=== PATIENT | female | born 1980 | race Caucasian/White ===

== ENCOUNTER 2016-12-18 12:30 | Emergency (ER) | payer MEDICAID ==
[~2016-12-18] VITALS: Ht 157.5 cm; Wt 72.6 kg
[~2016-12-18 12:30] MED LIST: LISI-363 PO; LORTA5 PO
[2016-12-18 12:51] VITALS: BP 111/85; PULSE 96; RESP 16; TEMP 98.1; O2SAT 97
--- NOTE | 2016-12-18 14:29 | PD ---
HPI Chief Complaint: Dizziness Time Seen by Provider: 14:29 Travel History International Travel<30 days: No Contact w/Intl Traveler<30days: No Traveled to known affect area: No History of Present Illness HPI 36-year-old female with history of hypertension presents to the ED for evaluation of 4 week history of right great toe pain and right sided back pain. Onset after she became dizzy and fell approximately 4 weeks ago. She rates the toe pain 8/10, worsened by ambulation. She states that the back pain is on the right lower lumbar area, occasionally radiates with tingling down the back of the right leg to the knee. She denies numbness, weakness, limitations to range of motion, saddle anesthesia, incontinence. She has treated with ice at home with no improvement of symptoms. She states that she has seen her primary care provider who wrote for outpatient x-rays of the lumbar spine and toe but she sought treatment today because her toe pain is so great. PFSH Past Medical History Anxiety: Yes Cancer: No Cardiovascular Problems: Yes (RAPID HR, HTN) Diminished Hearing: No Endocrine: No Gastrointestinal Disorders: Yes (GALLSTONES) Headaches: Yes Hypertension: Yes Immune Disorder: No Medical other: Yes (HERNIA, MOTHER H/O MULTIPLE STROKES) Neurologic: Yes (SCIATICA NERVE DAMAGE) Reproductive: Yes (ENDROMETRIOSIS) Respiratory: No Immunizations Current: Yes Tetanus Vaccination: > 5 Years Influenza Vaccination: No ?: Not LMP: TUBAL : 4 Para: 2 Miscarriage: 1 : 2 Tubal Ligation: Yes Past Surgical History Abdominal Surgery: Yes (GALLBLADDER) Cardiac Surgery: No Section: Yes (X 2) Cholecystectomy: Yes Genitourinary Surgery: No Gynecologic Surgery: Yes () Thoracic Surgery: No Other Surgery: Yes Social History Alcohol Use: Yes (WINE FEW TIMES PER WEEK) Tobacco Use: No Substance Use: No Allergies-Medications (Allergen,Severity, Reaction): Coded Allergies: No Known Allergies (Verified , 12/18/16) Reported Meds & Prescriptions Reported Meds & Active Scripts Active Flexeril (Cyclobenzaprine HCl) 10 Mg Tab 10 Mg PO TID Ibuprofen 800 Mg Tab 800 Mg PO Q8H Reported Klonopin (Clonazepam) 0.5 Mg Tab 0.5 Mg PO DIRECTED PRN Lortab (Hydrocodone-Acetaminophen) 10-325 Mg Tab 1 Tab PO Q4H PRN Lisinopril 20 Mg Tab 20 Mg PO DAILY Review of Systems Except as stated in HPI: all other systems reviewed are Neg Physical Exam Narrative GENERAL: Well-nourished, well-developed white female in no acute distress. SKIN: Warm and dry. HEAD: Normocephalic. EYES: No scleral icterus. No injection or drainage. NECK: Supple, trachea midline. No JVD or lymphadenopathy. CARDIOVASCULAR: Regular rate and rhythm without murmurs, gallops, or rubs. RESPIRATORY: Breath sounds equal bilaterally. No accessory muscle use. GASTROINTESTINAL: Abdomen soft, non-tender, nondistended. MUSCULOSKELETAL: No cyanosis, or edema. Focused right lower extremity exam: 2+ DP pulse. No tenderness to palpation of the anterior lateral hip. 5/5 strength with dorsiflexion, plantar flexion, knee flexion and hip flexion. Tender to palpation of the MP joint of the great toe. Mild deformity, suspicious for bunion. Patient is able to flex and extend the toes. Cap refill less than 2 seconds. Sensation intact to light touch distally. NEUROLOGICAL: Awake and alert. Cranial nerves II through XII intact. Motor and sensory grossly within normal limits. Five out of 5 muscle strength in all muscle groups. Normal speech. BACK: Nontender without obvious deformity. No CVA tenderness. No midline tenderness to palpation. Mild TTP of the right-sided lumbar musculature to the sciatic notch. Data Data Last Documented VS Vital Signs Date Time Temp Pulse Resp B/P Pulse Ox O2 Delivery O2 Flow Rate FiO2 12/18/16 16:28 85 14 115/92 100 12/18/16 12:51 98.1 Orders Toe (Min 2vws) (12/18/16 14:54) Ice/Cold Pack (12/18/16 14:54) Tramadol (Ultram) (12/18/16 15:45) MDM Medical Decision Making Medical Screen Exam Complete: Yes Emergency Medical Condition: Yes Differential Diagnosis Musculoskeletal pain versus fracture versus gout versus low back pain versus sciatica versus other Narrative Course 36-year-old female with history of hypertension presents to the ED for evaluation of 4 week history of right great toe pain and right sided back pain. Onset after she became dizzy and fell approximately 4 weeks ago. She rates the toe pain 8/10, worsened by ambulation. She states that the back pain is on the right lower lumbar area, occasionally radiates with tingling down the back of the right leg to the knee. She has treated with ice at home with no improvement of symptoms. She states that she has seen her primary care provider who wrote for outpatient x-rays of the lumbar spine and toe but she sought treatment today because her toe pain is so great. Vital reviewed. Physical exam reveals no tenderness to palpation of the anterior lateral hip. 5 /5 strength with dorsiflexion, plantar flexion, knee flexion and hip flexion. Tender to palpation of the MP joint of the great toe. No warmth or erythema. Mild deformity, suspicious for bunion. Patient is able to flex and extend the toes. No focal neural deficits. Mild tenderness to palpation of the right- sided lumbar musculature extending into the sciatic notch. Ice pack was applied. Patient was administered a single dose of tramadol. X-ray reveals no bony injury to the toe. This is low back pain and musculoskeletal pain of the toe. Patient was prescribed a short course of anti-inflammatory medications and muscle relaxants. She is instructed take the medications prescribed, follow up with her primary provider this week. She did understanding of the instructions. She is stable and discharged home. 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 Rest, ice, elevate the extremity. Apply ice no longer than 10-15 minutes per hour a few times a day. 800 milligrams ibuprofen 3 times a day as prescribed. Flexeril up to 30 times a day as needed for muscle spasm. Do not drive with taking Flexeril. Return to normal, gentle activity as tolerated. No running, jumping activities for the next few weeks. Follow up with the freelance court reporter and your primary care provider. Return to the ED for any urgent or emergent medical condition. Med/Other Pt SpecificInfo: Prescription(s) given Scripts Cyclobenzaprine (Flexeril)10 Mg Tab10 Mg PO TID #12 TAB Ref 0 Prov:Maureen Barriga MD 12/18/16 Ibuprofen 800 Mg [id number] Mg PO Q8H #14 TAB Ref 0 Prov:Maureen Barriga MD 12/18/16 Disposition: 01 DISCHARGE HOME Condition: Stable Xiomara Hemphill Dec 18, 2016 14:29
[2016-12-18] MEDS ORDERED: LISI-515 PO (14:30)
[2016-12-18] MEDS ORDERED: HYDR-3535 PO (14:30)
[2016-12-18] MEDS ORDERED: CLON.5 PO (14:30)
--- NOTE | 2016-12-18 15:33 | RADHPO ---
EXAM DATE/TIME: 12/18/2016 14:56 [facility] COMPARISON: No previous studies available for comparison. INDICATIONS : Right great toe pain after fall 4 weeks ago MEDICAL HISTORY : None. SURGICAL HISTORY : None. ENCOUNTER: Initial ACUITY: 1 month PAIN SCORE: 10/10 LOCATION: Right medial great toe FINDINGS: Examination of the first digit of the right foot demonstrates no evidence of fracture or dislocation. No radiopaque foreign bodies are seen. The soft tissues are intact. CONCLUSION: Negative for fracture or dislocation. Follow up in 7-10 days is suggested if symptoms persist. Jamaal Goodwin MD FACR on December 18, 2016 at 15:31 Board Certified Radiologist. This report was verified electronically.
[2016-12-18] MEDS ORDERED: traMADol HCL 50 MG TAB PO ONE (15:45)
[2016-12-18] MEDS ORDERED: IBUP800T23 PO (16:11)
[2016-12-18] MEDS ORDERED: CYCL1TAB29 PO (16:11)
[2016-12-18 16:28] VITALS: BP 115/92
== END 2016-12-18 16:29 | disposition home or self-care (01) ==
LOC: PHED 12:30 → PHEFT 16:29
DX: M79.674 Pain in right toe(s) (principal); M54.41 Lumbago with sciatica, right side; I10 Essential (primary) hypertension; W19.XXXA Unspecified fall, initial encounter
CPT/HCPCS: 73660; 99283

== ENCOUNTER 2017-01-17 19:54 | Emergency (ER) | payer MEDICAID, OTHER ==
[~2017-01-17] VITALS: Ht 157.5 cm; Wt 73.5 kg
[2017-01-17] VITALS (8 sets, daily range): BP systolic 103–122; BP diastolic 67–90; PULSE 88–104; RESP 16; TEMP 98.1; O2SAT 97–100
[~2017-01-17 19:54] MED LIST changes: +CLON.5 PO; +CYCL1TAB29 PO; +HYDR-3535 PO; +IBUP800T23 PO; -LISI-363 PO; +LISI-515 PO; -LORTA5 PO
[2017-01-17] MEDS ORDERED: SODIUM CHLOR 0.9% 1000 ML INJ 1,000 ML IV ONE (20:17)
[2017-01-17] MEDS ORDERED: SODIUM CHLORIDE 0.9% FLUSH 10 ML FLUSH IVF PRN (20:30)
[2017-01-17] MEDS ORDERED: ONDANSETRON HCL 4 MG/2 ML VIAL IVP ONE (20:30)
--- NOTE | 2017-01-17 20:49 | RADHPO ---
EXAM DATE/TIME: 01/17/2017 20:28 [facility] COMPARISON: CHEST SINGLE AP, September 19, 2014, 8:13. INDICATIONS : Palpitations and dizziness. MEDICAL HISTORY : Anxiety SURGICAL HISTORY : Tubal ligation. ENCOUNTER: Initial ACUITY: 1 day PAIN SCORE: 0/10 LOCATION: Bilateral chest FINDINGS: A single view of the chest demonstrates the lungs to be symmetrically aerated without evidence of mas s, infiltrate or effusion. The cardiomediastinal contours are unremarkable. Osseous structures are intact. CONCLUSION: No acute disease. Bala Olguin MD on January 17, 2017 at 20:47 Board Certified Radiologist. This report was verified electronically.
[2017-01-17 21:29] LABS: AUTOMATED NEUTROPHIL # 5.7 TH/MM3 (1.8-7.7); BASOPHIL # 0.3 TH/MM3 (0-0.2); BASOPHIL % 3.2 % (0.0-2.0); EOSINOPHIL # 0.4 TH/MM3 (0-0.4); EOSINOPHIL % 4.9 % (0.0-4.0); HEMATOCRIT 40.2 % (35.0-46.0); HEMO FLAGS DIFF FINAL; LYMPH % 20.1 % (9.0-44.0); LYMPHOCYTE # 1.7 TH/MM3 (1.0-4.8); MEAN CELL VOLUME 90.8 FL (80.0-100.0); MEAN CORPUSCULAR HEMOGLOBIN 30.6 PG (27.0-34.0); MEAN CORPUSCULAR HGB CONC 33.7 % (32.0-36.0); MONO % 6.4 % (0.0-8.0); NEUT % 65.4 % (16.0-70.0); PLATELET COUNT 205 TH/MM3 (150-450); RED BLOOD COUNT 4.43 MIL/MM3 (4.00-5.30); RED CELL DISTRIBUTION WIDTH 12.1 % (11.6-17.2); WHITE BLOOD COUNT 8.7 TH/MM3 (4.0-11.0)
[2017-01-17 21:44] LABS: CHLORIDE 102 MEQ/L (98-107); POTASSIUM 4.1 MEQ/L (3.5-5.1); SODIUM (NA) 139 MEQ/L (136-145)
[2017-01-17 21:48] LABS: ANION GAP 9 MEQ/L (5-15); BICARBONATE 27.7 MEQ/L (21.0-32.0); BLOOD UREA NITROGEN 11 MG/DL (7-18); MAGNESIUM 1.9 MG/DL (1.5-2.5)
[2017-01-17 21:50] LABS: PROTHROMBIN TIME - PATIENT 10.5 SEC (9.8-11.6)
[2017-01-17 21:51] LABS: ALT (GPT) 43 U/L (10-53); AST (GOT) 41 U/L (15-37); GLOMERULAR FILTRATION RATE 77 ML/MIN (>89)
[2017-01-17 21:53] LABS: TOTAL BILIRUBIN ADULT 0.4 MG/DL (0.2-1.0)
[2017-01-17 21:53] LABS: BLOOD, URINE LARGE (NEG); GLUCOSE,URINE NEG (NEG); KETONE, URINE 15 mg/dL (NEG); NITRITE,URINE NEG (NEG); PH, URINE 5.5 (5.0-8.5)
[2017-01-17 21:54] LABS: ALKALINE PHOSPHATASE 66 U/L (45-117)
[2017-01-17 22:00] LABS: BARBITURATES, URINE NEG (NEG); URINE COLOR YELLOW (YELLW/STRAW)
[2017-01-17 22:01] LABS: AMPHETAMINE, URINE NEG (NEG); COCAINE, URINE NEG (NEG); MUCUS URINE MOD /lpf (OCC); SQUAMOUS EPITHELIAL CELL URINE 0-5 /hpf (0-5)
[2017-01-17 22:02] LABS: BACTERIA, URINE FEW /hpf; COMMENT (UR) CULT NOT INDICATED; CULTURE IF INDICATED CULT NOT INDICATED; RBC, URINE 0-3 /hpf (0-3)
--- NOTE | 2017-01-17 23:03 | RADHPO ---
EXAM DATE/TIME: 01/17/2017 22:25 [facility] COMPARISON: CT BRAIN W/O CONTRAST, August 09, 2015, 19:09. INDICATIONS : Syncopal episode. RADIATION DOSE: 56.13 CTDIvol (mGy) MEDICAL HISTORY : Hypertension. SURGICAL HISTORY : Tubal ligation. ENCOUNTER: Initial ACUITY: 1 day PAIN SCALE: 3/10 LOCATION: cranial TECHNIQUE: Multiple contiguous axial images were obtained of the head. Using automated exposure control and adj ustment of the mA and/or kV according to patient size, radiation dose was kept as low as reasonably a chievable to obtain optimal diagnostic quality images. FINDINGS: CEREBRUM: The ventricles are normal for age. No evidence of midline shift, mass lesion, hemorrhage or acute in farction. No extra-axial fluid collections are seen. POSTERIOR FOSSA: The cerebellum and brainstem are intact. The 4th ventricle is midline. The cerebellopontine angle i s unremarkable. EXTRACRANIAL: The visualized portion of the orbits is intact. SKULL: The calvaria is intact. No evidence of skull fracture. CONCLUSION: Normal examination. Bala Olguin MD on January 17, 2017 at 23:00 Board Certified Radiologist. This report was verified electronically.
--- NOTE | 2017-01-18 00:01 | PD ---
HPI Chief Complaint: Syncope/Near-Syncope Time Seen by Provider: 20:17 Travel History International Travel<30 days: No Contact w/Intl Traveler<30days: No Traveled to known affect area: No History of Present Illness HPI 36-year-old female presents to the emergency department by EMS transport after her syncopal episode at work. Patient states that she did not feel well yesterday and then today while at work under enormous stress she started to feel poorly and started to sweat so went to the back office where she sat down thinks she may have had a brief episode of fainting. Patient reports coworker told her that she was pale and sweating so he called 911. Upon EMS arrival patient was hypotensive. Patient reports that she has chronic pain syndrome and anxiety and more recently has been taking as needed Klonopin for her anxiety and Lortab 10 as needed for pain associated with history of endometriosis and sciatica. Patient states she started her period 2 days ago and because is that believes that she is having her endometriosis pain and sciatica. Patient denies any trauma. The sudden onset thunderclap or worst ever headache no visual disturbance no double vision or loss of vision or change in her hearing no sore throat no neck pain no recent febrile illness or respiratory illness no cough congestion or shortness of breath. Patient did have one episode of vomiting however does not report bilious emesis coffee- ground emesis or hematemesis. No abdominal pain denies any flank pain dysuria frequency urgency or hematuria. No lower extremity numbness tingling or weakness but does have her referred sciatica pain on the right. Patient states she took her last dose of Lortab on evening and took a dose of Klonopin a few days ago. Patient reports she does not take these medications on a routine ordered daily basis. Patient states that she had eaten prior to going to work. Patient does not report any issues with hypoglycemia or blood sugar issues. Patient was given 500 ml of normal saline en route by EMS and patient reports feeling better at this time. Blood sugar was reportedly within normal range. Patient reports she has had near syncopal and syncopal episodes in the past. PFSH Past Medical History Narrative Medical Anxiety, rapid heart rate, hypertension, near syncope/syncope, migraines, endometriosis, sciatica; tubal ligation, , cholecystectomy; alcohol use ; nursing notes reviewed Anxiety: Yes Cancer: No Cardiovascular Problems: Yes (RAPID HR, HTN) Diminished Hearing: No Endocrine: No Gastrointestinal Disorders: Yes (GALLSTONES) Headaches: Yes Hypertension: Yes Immune Disorder: No Neurologic: Yes (SCIATICA NERVE DAMAGE) Reproductive: Yes (ENDROMETRIOSIS) Respiratory: No Immunizations Current: Yes Influenza Vaccination: No ?: Not LMP: HX TL 2004 : 4 Para: 2 Miscarriage: 1 : 2 Tubal Ligation: Yes (2004) Past Surgical History Abdominal Surgery: Yes (GALLBLADDER) Cardiac Surgery: No Section: Yes (X 2) Cholecystectomy: Yes Genitourinary Surgery: No Gynecologic Surgery: Yes () Thoracic Surgery: No Other Surgery: Yes Social History Alcohol Use: Yes (WINE 3-4 TIMES PER WEEK) Tobacco Use: No Substance Use: No Allergies-Medications (Allergen,Severity, Reaction): Coded Allergies: No Known Allergies (Verified , 12/18/16) Reported Meds & Prescriptions Reported Meds & Active Scripts Active Flexeril (Cyclobenzaprine HCl) 10 Mg Tab 10 Mg PO TID Ibuprofen 800 Mg Tab 800 Mg PO Q8H Reported Klonopin (Clonazepam) 0.5 Mg Tab 0.5 Mg PO DIRECTED PRN Lortab (Hydrocodone-Acetaminophen) 10-325 Mg Tab 1 Tab PO Q4H PRN Lisinopril 20 Mg Tab 20 Mg PO DAILY Review of Systems Except as stated in HPI: all other systems reviewed are Neg General / Constitutional: No: Fever, Chills Eyes: No: Visual changes HENT: Positive: Lightheadedness, No: Headaches, Neck Pain Cardiovascular: Positive: Diaphoresis, Syncope, No: Palpitations Respiratory: No: Shortness of Breath Gastrointestinal: No: Nausea, Vomiting, Diarrhea, Abdominal Pain Genitourinary: No: Dysuria, Decreased Urinary Output Musculoskeletal: No: Myalgias, Arthralgias Skin: No Rash Neurologic: Positive: Dizziness, Syncope, No: Weakness, Focal Abnormalities, Coordination Problem Psychiatric: Positive: Anxiety Endocrine: No: Heat Intolerance Physical Exam Narrative GENERAL: Well-developed well-nourished female in no acute distress no respiratory distress; gcs 15. SKIN: Warm and dry. HEAD: Atraumatic. Normocephalic. EYES: Pupils equal and round. No scleral icterus. No injection or drainage. ENT: No nasal bleeding or discharge. Mucous membranes pink and moist. NECK: Trachea midline. No JVD. CARDIOVASCULAR: Regular rate and rhythm. RESPIRATORY: No accessory muscle use. Clear to auscultation. Breath sounds equal bilaterally. GASTROINTESTINAL: Abdomen soft, non-tender, nondistended. Hepatic and splenic margins not palpable. MUSCULOSKELETAL: Extremities without clubbing, cyanosis, or edema. No obvious deformities. NEUROLOGICAL: Awake and alert. No obvious cranial nerve deficits. Motor grossly within normal limits. Five out of 5 muscle strength in the arms and legs. No limb ataxia. No pronator drift. Sensory exam grossly intact. Normal speech. PSYCHIATRIC: Appropriate mood and affect; insight and judgment normal. Data Data Last Documented VS Vital Signs Date Time Temp Pulse Resp B/P Pulse Ox O2 Delivery O2 Flow Rate FiO2 01/18/17 01:07 97 16 123/85 100 Room Air 01/17/17 20:08 98.1 Orders Electrocardiogram (01/17/17 20:17) Ed Urine Pregnancytest Poc (01/17/17 20:17) Complete Blood Count With Diff (01/17/17 20:17) Comprehensive Metabolic Panel (01/17/17 20:17) Magnesium (Mg) (01/17/17 20:17) Troponin I (01/17/17 20:17) Act Partial Throm Time (Ptt) (01/17/17 20:17) Prothrombin Time / Inr (Pt) (01/17/17 20:17) Urinalysis - C+S If Indicated (01/17/17 20:17) Chest, Single Ap (01/17/17 20:17) Ct Brain W/O Iv Contrast(Rout) (01/17/17 20:17) Blood Glucose (01/17/17 20:17) Ecg Monitoring (01/17/17 20:17) Iv Access Insert/Monitor (01/17/17 20:17) Oximetry (01/17/17 20:17) Ondansetron Inj (Zofran Inj) (01/17/17 20:30) Sodium Chloride 0.9% Flush (Ns Flush) (01/17/17 20:30) Sodium Chlor 0.9% 1000 Ml Inj (Ns 1000 M (01/17/17 20:17) Drug Screen, Random Urine (01/17/17 20:54) Sodium Chlor 0.9% 1000 Ml Inj (Ns 1000 M (01/18/17 00:15) Labs Laboratory Tests Test 01/17/17 01/17/17 21:00 21:30 White Blood Count 8.7 TH/MM3 Red Blood Count 4.43 MIL/MM3 Hemoglobin 13.6 GM/DL Hematocrit 40.2 % Mean Corpuscular Volume 90.8 FL Mean Corpuscular Hemoglobin 30.6 PG Mean Corpuscular Hemoglobin 33.7 % Concent Red Cell Distribution Width 12.1 % Platelet Count 205 TH/MM3 Mean Platelet Volume 7.6 FL Neutrophils (%) (Auto) 65.4 % Lymphocytes (%) (Auto) 20.1 % Monocytes (%) (Auto) 6.4 % Eosinophils (%) (Auto) 4.9 % Basophils (%) (Auto) 3.2 % Neutrophils # (Auto) 5.7 TH/MM3 Lymphocytes # (Auto) 1.7 TH/MM3 Monocytes # (Auto) 0.6 TH/MM3 Eosinophils # (Auto) 0.4 TH/MM3 Basophils # (Auto) 0.3 TH/MM3 CBC Comment DIFF FINAL Differential Comment Prothrombin Time 10.5 SEC Prothromb Time International 1.0 RATIO Ratio Activated Partial 24.0 SEC Thromboplast Time Sodium Level 139 MEQ/L Potassium Level 4.1 MEQ/L Chloride Level 102 MEQ/L Carbon Dioxide Level 27.7 MEQ/L Anion Gap 9 MEQ/L Blood Urea Nitrogen 11 MG/DL Creatinine 0.83 MG/DL Estimat Glomerular Filtration 77 ML/MIN Rate Random Glucose 88 MG/DL Calcium Level 8.9 MG/DL Magnesium Level 1.9 MG/DL Total Bilirubin 0.4 MG/DL Aspartate Amino Transf 41 U/L (AST/SGOT) Alanine Aminotransferase 43 U/L (ALT/SGPT) Alkaline Phosphatase 66 U/L Troponin I LESS THAN 0.02 NG/ML Total Protein 8.2 GM/DL Albumin 4.0 GM/DL Urine Color YELLOW Urine Turbidity CLEAR Urine pH 5.5 Urine Specific [place] 1.020 Urine Protein NEG mg/dL Urine Glucose (UA) NEG mg/dL Urine Ketones 15 mg/dL Urine Occult Blood LARGE Urine Nitrite NEG Urine Bilirubin NEG Urine Leukocyte Esterase NEG Urine RBC 0-3 /hpf Urine WBC 3-5 /hpf Urine Squamous Epithelial 0-5 /hpf Cells Urine Amorphous Sediment FEW Urine Bacteria FEW /hpf Urine Mucus MOD /lpf Microscopic Urinalysis Comment CULT NOT INDICATED Urine Opiates Screen POS Urine Barbiturates Screen NEG Urine Amphetamines Screen NEG Urine Benzodiazepines Screen POS Urine Cocaine Screen NEG Urine Cannabinoids Screen POS MDM Medical Decision Making Medical Screen Exam Complete: Yes Emergency Medical Condition: Yes Medical Record Reviewed: Yes Interpretation(s) EKG normal sinus rhythm rate [address] elevation injury pattern or ectopy noted Last Impressions Head CT 01/17/172016 Signed Impressions: Service Date/Time: Tuesday, January 17, 2017 22:25 - CONCLUSION: Normal examination. Bala Olguin MD Chest X-Ray 01/17/172016 Signed Impressions: Service Date/Time: Tuesday, January 17, 2017 20:28 - CONCLUSION: No acute disease. Bala Olguin MD CBC & BMP Diagram 01/17/17 21:00 Vital Signs Date Time Temp Pulse Resp B/P Pulse Ox O2 Delivery O2 Flow Rate FiO2 01/17/17 20:26 99 16 117/82 99 Room Air 112/90 01/17/17 20:15 106 16 100 Room Air 01/17/17 20:08 98.1 104 16 122/86 100 01/17/17 20:05 16 100 Room Air Differential Diagnosis Near-syncope, syncope, vasovagal versus arrhythmia versus electrolyte disturbance versus dehydration versus anemia versus ACS versus TIA versus CVA versus versus UTI versus sepsis Narrative Course Patient placed on air sampling and monitoring IV access obtained specimens collected and sent for resulting EKG sinus rhythm no acute ST elevation or injury pattern change noted Imaging studies ordered; no acute findings identified Lab values found to be in within normal range; patient administered IV fluid bolus Patient clinically improved with some mild weakness complaint therefore additional IV fluids administered and had not eaten since this morning therefore given a meal After fluid hydration and oral intake patient reports she is at her baseline is desirous of being discharged home has had previous syncopal episodes appears to have had a probable vasovagal event and appears stable for outpatient management at this time. Diagnosis Primary Impression: Vasovagal syncope Referrals: Primary Care Physician 2 days Patient Instructions: General Instructions Departure Forms: Tests/Procedures, Work Release Special Instructions: no work x 2 days Additional Instructions: Increase fluid hydration Follow-up with your primary care provider Return to the emergency department for any concerns or change in condition No work 2 days Avoid use of your as needed narcotic pain medication; use nonsteroidal anti- inflammatory medications such as ibuprofen for chronic pain syndrome and for musculoskeletal pain Use caution when moving from lying to sitting to standing and with prolonged standing Disposition: 01 DISCHARGE HOME Condition: Stable Nellie Jha MD Jan 18, 2017 00:01
[2017-01-18] MEDS ORDERED: SODIUM CHLOR 0.9% 1000 ML INJ 1,000 ML IV ONE (00:15)
[2017-01-18 01:07] VITALS: BP 123/85; PULSE 97; RESP 16; O2SAT 100
--- NOTE | 2017-01-18 14:21 | EKG ---
Date Performed: 01/17/2017 Time Performed: 20:23:18 PTAGE: 36 years EKG: Sinus rhythm Compared to previous tracing, T wave changes have improved anteriorly. Normal ECG PREVIOUS TRACING : 08/09/2015 19.39.30 DOCTOR: Nazario Dukes Interpretating Date/Time 01/18/2017 14:19:53
== END 2017-01-18 02:03 | disposition home or self-care (01) ==
LOC: PHED 19:54
DX: R55 Syncope and collapse (principal); R61 Generalized hyperhidrosis; I10 Essential (primary) hypertension; R00.2 Palpitations
CPT/HCPCS: 70450; 71010; 80053; 80307; 81001; 83735; 84484; 84703; 85025; 85610; 85730; 93005; 96361; 96374; 99285; J2405; J7030